=== PATIENT | female | born 1980 | race Caucasian/White ===

== ENCOUNTER 2017-08-18 18:31 | Emergency (ER) | payer OTHER ==
--- NOTE | 2017-08-18 19:14 | PDOC ---
Rapid Medical Evaluation Time Seen by Provider: 08/18/17 19:05 Medical Evaluation: 08/18/17 19:07 I have performed a brief in-person evaluation of this patient. The patient presents with a chief complaint of:LMP 07/03- + preg , 08/01 seen and [facility]. + bleeding x 6 days light. Follow up visit 08/15 Ultrasound saw retained products, blood work taken, additional "pill" given. + Bleeding. Today was called and told to come to ER for possible ectopic. No cramping today, no fevers, + bleeding. Pertinent physical exam findings: well, non toxic appearance , abd soft, NT no rebound I have ordered the following: CBC, TandS, BetaHcG, UA, IV, US transvag. The patient will proceed to the ED for further evaluation. 08/18/17 19:17 08/18/17 19:17
[2017-08-18 19:16] VITALS: BP 159/77; PULSE 98; TEMP 99.6; BMI 35.6
--- NOTE | 2017-08-18 19:46 | PDOC ---
History of Present Illness - General Chief Complaint: [facility] [place] Stated Complaint: VAGINAL BLEEDING (4WKS ) Time Seen by Provider: 08/18/17 19:05 History Source: Patient - History of Present Illness Initial Comments: 08/18/17 19:34 37F G2L1 last period July 03 [facility] (patient was then 4 weeks , confirmed by beta hcg 600 was at the time ). Came back for follow up today and was told she still had products on conception in the uterus. Patient was called 2 days later and told her beta hcg went up to either 1600 or 20344 (patient can't rememeber) and to go to the ER for possible Ectopic. 08/18/17 19:46 Patient is currently bleeding but pain free. Past History - Past Medical History Allergies/Adverse Reactions: Allergies Allergy/AdvReac Type Severity Reaction Status Date / Time No Known Allergies Allergy Verified 08/18/17 19:09 - Suicide/Smoking/Psychosocial Hx Smoking History: Never smoked Hx Alcohol Use: No Drug/Substance Use Hx: No Review of Systems - Review of Systems Able to Perform ROS?: Yes Is the patient limited Telugu proficient: No Constitutional: No: Symptoms Reported HEENTM: No: Symptoms Reported Respiratory: No: Symptoms reported Cardiac (ROS): No: Symptoms Reported ABD/GI: No: Symptoms Reported : No: Symptoms Reported Musculoskeletal: No: Symptoms Reported Integumentary: No: Symptoms Reported Neurological: No: Symptoms reported All Other Systems: Reviewed and Negative *Physical Exam - Vital Signs Last Vital Signs Temp Pulse Resp BP Pulse Ox 99.6 F 98 H 16 159/77 100 08/18/17 19:10 08/18/17 19:10 08/18/17 19:10 08/18/17 19:10 08/18/17 19:10 - Physical Exam General Appearance: Yes: Nourished, Appropriately Dressed. No: Apparent Distress HEENT: positive: EOMI, MARIELA, Normal ENT Inspection Neck: negative: Tender Respiratory/Chest: positive: Lungs Clear, Normal Breath Sounds. negative: Chest Tender, Respiratory Distress Cardiovascular: positive: Regular Rhythm, Regular Rate, S1, S2 Female Pelvic Exam: positive: vaginal bleeding Gastrointestinal/Abdominal: positive: Normal Bowel Sounds, Flat, Soft. negative : Tender ED Treatment Course - LABORATORY CBC & Chemistry Diagram: 08/18/17 19:20 08/18/17 19:20 Medical Decision Making - Medical Decision Making 08/18/17 19:47 37F evaluated for incomplete . *DC/Admit/Observation/Transfer Diagnosis at time of Disposition: Incomplete - Discharge Dispostion Disposition: AGAINST MEDICAL ADVICE Condition at time of disposition: Fair - Referrals Referrals: emergency department, urgently [Other] - Patient Instructions Printed Discharge Instructions: DI for Ectopic Additional Instructions: You're leaving against medical advice putting you at risk for rupture of possible ectopic which could lead to . Return to the Er urgently for evaluation and return immediately for any abnormal bleeding, pain, new, worsening or concerning symptoms. - Post Discharge Activity
[2017-08-18 19:51] LABS: BASO % 1.2 % (0-2.0); EOS % 1.3 % (0-4.5); HEMATOCRIT 36.8 % (32.4-45.2); HEMOGLOBIN 11.8 GM/dL (10.7-15.3); LYMPH % 27.2 % (8-40); MCH 26.9 pg (25.7-33.7); MCHC 32.1 g/dl (32.0-36.0); MEAN PLT VOLUME 8.8 fl (7.5-11.1); MONO % 9.8 % (3.8-10.2); NEUT % 60.5 % (42.8-82.8); PLATELET COUNT 417 K/MM3 (134-434); RBC 4.37 M/mm3 (3.60-5.2); RDW 13.7 % (11.6-15.6); WHITE BLOOD COUNT 8.1 K/mm3 (4.0-10.0)
--- NOTE | 2017-08-18 20:12 | PDOC ---
Attending Attestation - Resident Resident Name: Naun Gu - ED Attending Attestation I have performed the following: I have examined & evaluated the patient, The case was reviewed & discussed with the resident, I agree w/resident's findings & plan, Exceptions are as noted - Physicial Exam PE: 08/18/17 20:34 Patient is awake and alert, well-nourished, in no distress nc, atr cta rrr sft, nt, nd - Medical Decision Making 08/18/17 20:32 Patient is a 37-year-old female, 2 para 1, at 6 weeks gestation by [employer] who presents to the ER with scant vaginal bleeding after receiving 2 doses of methotrexate at [facility] for a planned . Patient reports that she underwent an ultrasound which showed retained products of conception and her beta hCG was noted to increase from baseline. Patient was suggested to come to the ER for evaluation of a possible ectopic . In the ER, patient is nontoxic appearing, without any abdominal pain with normal vital signs. Patient refused pelvic exam did not wish to wait for a transvaginal ultrasound U2 familial applications. Patient will be signing out AGAINST MEDICAL ADVICE but will be instructed to return immediately for reevaluation. Patient will be given ectopic precautions. <Kamar Vincent - Last Filed: 08/18/17 20:32> - HPI HPI: 08/18/17 20:55 The patient is a 41-year-old male, with no significant past medical history, who presents to the ED for an abscess on the right forearm that the patient noted 5 days ago. The patient has noted an increase in pain and size over the past few days. He denies any recent injury to the area. <Nela Jeffers - Last Filed: 08/18/17 20:56>
[2017-08-18 20:55] LABS: ALBUMIN 3.2 g/dl (3.4-5.0); ALK PHOS 179 U/L (45-117); ANION GAP 9 (8-16); BILIRUBIN,TOTAL 0.2 mg/dL (0.2-1.0); BLOOD UREA NITROGEN 15 mg/dL (7-18); CALCIUM 8.5 mg/dL (8.5-10.1); CHLORIDE 106 mmol/L (98-107); CO2 23 mmol/L (21-32); CREATININE 0.4 mg/dL (0.55-1.02); GLUCOSE,RANDOM 82 mg/dL (74-106); POTASSIUM 4.3 mmol/L (3.5-5.1); SGOT/AST 13 U/L (15-37); SGPT/ALT 18 U/L (12-78); SODIUM 138 mmol/L (136-145); TOT PROT 7.3 g/dl (6.4-8.2)
== END 2017-08-18 21:14 | disposition left against medical advice (07) ==
LOC: JER 18:31
DX: O03.39 Incomplete spontaneous abortion with other complications (principal); O03.1 Delayed or excessive hemorrhage following incomplete spontaneous abortion
CPT/HCPCS: 36415; 80053; 84702; 85025; 86850; 86900; 86901; 99281-25

== ENCOUNTER 2017-08-18 23:15 | Emergency (ER) | payer OTHER ==
--- NOTE | 2017-08-18 23:53 | PDOC ---
History of Present Illness <Kamar Vincent - Last Filed: 08/19/17 02:17> - General History Source: Patient Exam Limitations: No Limitations - History of Present Illness Initial Comments: 08/19/17 01:04 The patient is a 37-year-old female, , with no significant past medical history, who presents to the ED for retained products of conception today. The patient states that she went to [facility] 2 weeks ago for a voluntary by pill. At that time, the patient was told that she was 4 weeks and her beta HCG was 600. The patient had a follow-up appointment at the clinic today. Imaging revealed products of conception in her uterus and she was noted to have a beta HCG of 1600. She was advised to come into the ED for possible ectopic . She reports that her last period was on July 03. On exam, the patient reports that she is currently bleeding. The patient had to leave against medical advice for familial obligations and now returns after labs revealed a beta HCG of 1800. She denies any nausea, vomiting, or diarrhea. She denies any vaginal discharge. <Nela Jeffers - Last Filed: 08/19/17 02:24> - General Chief Complaint: Revisit, Lab Variance Stated Complaint: ER REVIST Time Seen by Provider: 08/18/17 23:52 Past History - Suicide/Smoking/Psychosocial Hx Smoking History: Never smoked Hx Alcohol Use: No Drug/Substance Use Hx: No <Kamar Vincent - Last Filed: 08/19/17 02:17> <Nela Jeffers - Last Filed: 08/19/17 02:24> - Past Medical History Allergies/Adverse Reactions: Allergies Allergy/AdvReac Type Severity Reaction Status Date / Time No Known Allergies Allergy Verified 08/18/17 23:55 Home Medications: Ambulatory Orders Cephalexin [Keflex] 500 mg PO BID #14 capsule 08/19/17 Review of Systems - Review of Systems Able to Perform ROS?: Yes Comments:: 08/19/17 01:05 CONSTITUTIONAL: No fever, no chills, no fatigue EYES: No visual changes ENT: No ear pain, no sore throat CARDIOVASCULAR: No chest pain, no palpitations RESPIRATORY: No cough, no SOB GI: No abdominal pain, no nausea, no vomiting, no constipation, no diarrhea GENITOURINARY: (+)vaginal bleeding. No dysuria, no frequency, no hematuria MUSKULOSKELETAL: No backpain, no joint pain, no myalgias SKIN: No rash NEURO: No headache <Nela Jeffers - Last Filed: 08/19/17 02:24> *Physical Exam - Vital Signs Last Vital Signs Temp Pulse Resp BP Pulse Ox 98.2 F 98 H 17 147/86 100 08/18/17 23:57 08/18/17 23:52 08/18/17 23:52 08/18/17 23:52 08/18/17 23:52 - Physical Exam Comments: 08/19/17 02:22 CONSTITUTIONAL: Well-appearing; well-nourished; in no apparent distress HEAD: Normocephalic; atraumatic EYES: PERRL; EOM intact ENMT: External appears normal; normal oropharynx NECK: Supple; non-tender; no cervical lymphadenopathy CARD: Normal S1, S2; no murmurs, rubs, or gallops RESP: Normal chest excursion with respiration; breath sounds clear and equal bilaterally; no wheezes, rhonchi, or rales ABD: Soft, non-distended; non-tender; no palpable organomegaly, no palpable hernias EXT: Normal ROM in all four extremities; non-tender to palpation; distal pulses intact SKIN: Warm, dry, no rash NEURO: No focal neurological deficiencies. PELVIC EXAM: No external lesions Small amount of coagulated blood Os is closed No cmt <Nela Jeffers - Last Filed: 08/19/17 02:24> Medical Decision Making - Medical Decision Making 08/19/17 02:10 patient is a who presented receiving mifeprostone-misoprostol for an elective at [facility]. Patient hadd out AMA due to familial obions. Patien that her beta hCG has increased. In the ER, patient isawake and alet, hemodynamically stable, amount of vag bleeding and a closed os. beta hCG is noted to be 18,000Transvaginal ultrasound shows an IUP with yolk sac but no pole. No evidence of ectopic is present. Urinalysis reveals 12 WBCs per high-power field consistent with asymptomatic bacteriuria. Patient has been advised to follow-up with [facility] for further care given that the is not desirable and patient wishes termination. Will discharge with Keflex. <Kamar Vincent - Last Filed: 08/19/17 02:17> *DC/Admit/Observation/Transfer - Attestations Physician Attestion: 08/19/17 02:10 The documentation was prepared by the scribe under my direct supervision. I have reviewed the documentation which correctly represents the findings, medical decision-making and critical action taken by me. <Kamar Vincent - Last Filed: 08/19/17 02:17> - Attestations Scribe Attestion: 08/19/17 01:08 Documentation prepared by Nela Jeffers, acting as medical office technologist for Kamar Vincent MD. <Nela Jeffers - Last Filed: 08/19/17 02:24> Diagnosis at time of Disposition: Incomplete Urinary tract infection Qualifiers: Urinary tract infection type: site unspecified Hematuria presence: with hematuria Qualified Code(s): N39.0 - Urinary tract infection, site not specified - Discharge Dispostion Condition at time of disposition: Fair - Prescriptions Prescriptions: Cephalexin [Keflex] 500 mg PO BID #14 capsule - Referrals Referrals: ON STAFF,NOT [Non Staff, Medical] - [facility] [Other] - Patient Instructions Printed Discharge Instructions: Threatened , DI for Urinary Tract Infection (UTI) Additional Instructions: [facility], return to the ED for severe abd pain, vaginal bleeding, fever - Post Discharge Activity
[2017-08-18 23:56] VITALS: BP 147/86; PULSE 98; BMI 33.8
[2017-08-19 00:12] VITALS: TEMP 98.2
[2017-08-19 01:47] LABS: URINE APPEARANCE SLCLOUDY; URINE BILIRUBIN NEGATIVE (NEGATIVE); URINE BLOOD 3+ (NEGATIVE); URINE COLOR YELLOW; URINE GLUCOSE (UA) NEGATIVE (NEGATIVE); URINE KETONE NEGATIVE (NEGATIVE); URINE NITRITE NEGATIVE (NEGATIVE); URINE PROTEIN NEGATIVE (NEGATIVE)
[2017-08-19 01:49] LABS: URINE LEUK ESTERASE 2+ (NEGATIVE)
[2017-08-19 01:51] LABS: CALCIUM OXALATE CRYSTALS MODERATE /hpf (NONE SEEN); EPI CELLS RARE /HPF (FEW); URINE MUCUS FEW
== END 2017-08-19 02:35 | disposition home or self-care (01) ==
LOC: SUPCPDRO 23:15 → JER 23:15
DX: O03.39 Incomplete spontaneous abortion with other complications (principal); O03.1 Delayed or excessive hemorrhage following incomplete spontaneous abortion
CPT/HCPCS: 76817-TC; 81003; 81015; 87086; 99283-25

== ENCOUNTER 2020-08-20 17:59 | Inpatient (IN) | payer OTHER ==
[2020-08-20] MEDS ORDERED: morphine CARPU-JECT 4 MG/1 ML DISP.SYRIN IVPUSH ONE (18:52)
[2020-08-20] MEDS ORDERED: ACETAMINOPHEN 325 MG TABLET (FP) PO ONE (18:52)
[2020-08-20] MEDS ORDERED: ACETAMINOPHEN 325 MG TABLET (FP) ONE (19:08)
[2020-08-20] MEDS ORDERED: morphine SULFATE 4 MG/ML VIAL ONE (19:09)
[2020-08-20] MEDS ORDERED: VANCOMYCIN HCL 1,500 MG in DEXTROSE 5%-WATER - 500 ML IVPB ONE (19:28)
[2020-08-20] MEDS ORDERED: CLINDAMYCIN 600MG PREMIX IVPB 600 MG/50 ML BAG IVPB ONE ×2 (19:47→19:53)
[2020-08-20 19:49] LABS: EOS % 0.8 % (0-4.5); HEMATOCRIT 30.6 % (32.4-45.2); HEMOGLOBIN 9.4 GM/dL (10.7-15.3); LYMPH % 22.8 % (8-40); MCHC 30.9 g/dl (32.0-36.0); MONO % 9.2 % (3.8-10.2); NEUT % 66.2 % (42.8-82.8); PLATELET COUNT 533 K/MM3 (134-434); RDW 17.6 % (11.6-15.6); WHITE BLOOD COUNT 9.7 K/mm3 (4.0-10.0)
[2020-08-20 20:05] LABS: PROTHROMBIN TIME (PATIENT) 12.3 SEC (9.7-13.0)
[2020-08-20 20:08] LABS: ACTIVATED PTT 25.3 SECONDS (25.2-36.5)
[2020-08-20] MEDS ORDERED: ACETAMINOPHEN 325 MG TABLET (FP) PO PRN (20:12)
[2020-08-20 20:14] LABS: POTASSIUM 3.8 mmol/L (3.5-5.1)
[2020-08-20 20:16] LABS: CALCIUM 8.1 mg/dL (8.5-10.1)
[2020-08-20 20:17] LABS: BLOOD UREA NITROGEN 14.9 mg/dL (7-18)
[2020-08-20 20:20] LABS: CREATININE 0.4 mg/dL (0.55-1.3)
[2020-08-20 20:22] LABS: BILIRUBIN,TOTAL 0.5 mg/dL (0.2-1); TOT PROT 7.1 g/dl (6.4-8.2)
[2020-08-20 21:43] LABS: ANISOCYTOSIS 2+; MACROCYTOSIS 1+; PLATELET ESTIMATE INCREASED
[2020-08-21 00:29] VITALS: BMI 38.4
[2020-08-21] MEDS: MORPHINE SULFATE 2 MG/ML VIAL IVPUSH PRN ×2 (00:42→06:34)
[2020-08-21] MEDS ORDERED: PT OWN MED DRAWER 7, Y5N ONE ×2 (08:42→17:30)
[2020-08-21 08:58] LABS: BASO % 0.9 % (0-2.0); EOS % 0.7 % (0-4.5); HEMATOCRIT 29.1 % (32.4-45.2); LYMPH % 21.3 % (8-40); MCH 21.1 pg (25.7-33.7); MEAN PLT VOLUME 9.2 fl (7.5-11.1); MONO % 8.3 % (3.8-10.2); NEUT % 68.8 % (42.8-82.8); PLATELET COUNT 481 K/MM3 (134-434); RBC 4.28 M/mm3 (3.60-5.2); RDW 17.8 % (11.6-15.6); WHITE BLOOD COUNT 7.9 K/mm3 (4.0-10.0)
[2020-08-21 09:22] LABS: ALBUMIN 2.8 g/dl (3.4-5.0); BLOOD UREA NITROGEN 9.3 mg/dL (7-18); CALCIUM 8.2 mg/dL (8.5-10.1)
[2020-08-21 09:23] LABS: MAGNESIUM 1.9 mg/dL (1.8-2.4)
[2020-08-21 09:25] LABS: CREATININE 0.3 mg/dL (0.55-1.3)
[2020-08-21 09:26] LABS: BILIRUBIN,TOTAL 0.3 mg/dL (0.2-1); TOT PROT 6.6 g/dl (6.4-8.2)
[2020-08-21] MEDS ORDERED: VANCOMYCIN 1 GRAM (PRE-DOCKED) 1,000 MG/250 ML BAG IVPB ONE (10:00)
[2020-08-21] MEDS: AMPICILLIN NA/SULBACTAM NA 3 GM in SODIUM CHLORIDE 100 ML IVPB SCH ×3 (10:19→20:15)
[2020-08-21] MEDS ORDERED: VANCOMYCIN/WATER BAGS 1,250 MG/250 ML BAG IVPB SCH (11:00)
[2020-08-21] MEDS ORDERED: ACETAMINOPHEN 1000 MG/100 ML VIAL (NON FORMULARY) IVPB ONE (11:43)
[2020-08-21] MEDS ORDERED: MIDAZOLAM HCL 2 MG/2 ML SINGLE DOSE VIAL ONE (13:23)
[2020-08-21] MEDS ORDERED: PROPOFOL 20 ML ONE (13:23)
[2020-08-21] MEDS ORDERED: ONDANSETRON 4 MG/2 ML VIAL IVPUSH PRN ×2 (14:06→14:29)
[2020-08-21] MEDS ORDERED: LACTATED RINGERS SOLUTION 1,000 ML IV SCH ×2 (14:15→14:29)
[2020-08-21] MEDS ORDERED: ACETAMINOPHEN 325 MG TABLET (FP) PO PRN (14:29)
[2020-08-21] MEDS ORDERED: oxyCODONE HCL 5 MG TABLET PO PRN (14:31)
[2020-08-21] MEDS ORDERED: KETOROLAC TROMETHAMINE 15 MG/ML VIAL IVPUSH PRN ×2 (14:33→14:44)
[2020-08-21] MEDS: oxyCODONE HCL 5 MG TABLET PO PRN (18:29)
[2020-08-22] MEDS: AMPICILLIN NA/SULBACTAM NA 3 GM in SODIUM CHLORIDE 100 ML IVPB SCH ×2 (02:29→09:05)
[2020-08-22] MEDS: oxyCODONE HCL 5 MG TABLET PO PRN ×2 (03:24→12:42)
[2020-08-22 05:09] VITALS: PULSE 90; TEMP 98.7
[2020-08-22 06:47] VITALS: BP 146/88
[2020-08-22] MEDS ORDERED: PT OWN MED DRAWER 7, Y5N ONE ×2 (08:32→12:28)
[2020-08-22] MEDS ORDERED: VANCOMYCIN/WATER BAGS 1,250 MG/250 ML BAG IVPB SCH (11:00)
[2020-08-22] MEDS ORDERED: AMOX TR/POT CLAV 875MG/125MG TABLETS (FP) PO SCH (17:30)
== END 2020-08-22 14:12 | disposition home or self-care (01) | DRG 385 ==
LOC: JER 17:59 → JERBED 19:48 → J8W 08-21 00:32
PROVIDERS: ADMIT Internal Medicine; ATTEND Family Medicine
PROC: 0W980ZX Drainage of Chest Wall, Open Approach, Diagnostic (ICD-10-PCS; principal; 2020-08-21 09:00)
DX: N61.1 Abscess of the breast and nipple (principal); L03.313 Cellulitis of chest wall; L02.213 Cutaneous abscess of chest wall
CPT/HCPCS: 36415; 71045-TC-FY; 76642-TC-RT; 80053; 83735; 84703; 85025; 85610; 85730; 86850; 86900; 86901; 87070; 87076; 87205; 93005; 93010; 94760; 99285-25; C9803; J0131; U0003

== ENCOUNTER 2023-11-27 08:32 | Day surgery (SDC) | payer OTHER ==
[2023-11-27] MEDS: FERRIC CARBOXYMALTOSE 750 MG in SODIUM CHLORIDE 250 ML IVPB ONE (09:25)
[2023-11-27 09:57] VITALS: RESP 20
[2023-11-27 14:27] VITALS: BP 139/66; PULSE 64; TEMP 98
== END 2023-11-27 10:40 | disposition home or self-care (01) ==
LOC: JONCNONCHE 08:32 → J7W 09:38 → JONCNONCHE 10:40
PROVIDERS: ATTEND Internal Medicine Hematology & Oncology
PROC: 3E033GC Introduction of Other Therapeutic Substance into Peripheral Vein, Percutaneous Approach (ICD-10-PCS; principal; 2023-11-27)
DX: D50.9 Iron deficiency anemia, unspecified (principal)
CPT/HCPCS: 96365; J1439

== ENCOUNTER 2023-12-04 08:00 | Day surgery (SDC) | payer OTHER ==
[2023-12-04] MEDS: FERRIC CARBOXYMALTOSE 750 MG in SODIUM CHLORIDE 250 ML IVPB ONE (08:07)
[2023-12-04 13:38] VITALS: BP 133/58; PULSE 67; TEMP 98.3
[2023-12-05 08:07] VITALS: RESP 20
== END 2023-12-04 09:00 | disposition home or self-care (01) ==
LOC: JONCNONCHE 08:00 → J7W 08:00 → JONCNONCHE 09:00
PROVIDERS: ATTEND Internal Medicine Hematology & Oncology
PROC: 3E033GC Introduction of Other Therapeutic Substance into Peripheral Vein, Percutaneous Approach (ICD-10-PCS; principal; 2023-12-04)
DX: D50.9 Iron deficiency anemia, unspecified (principal)
CPT/HCPCS: 96365; J1439

== ENCOUNTER 2024-12-23 11:13 | Day surgery (SDC) | payer OTHER ==
[2024-12-23] MEDS: FERRIC CARBOXYMALTOSE 750 MG in SODIUM CHLORIDE 250 ML IVPB ONE (11:38)
[2024-12-23 13:49] VITALS: RESP 18; TEMP 98.2
[2024-12-23 14:03] VITALS: BP 145/80; PULSE 69
== END 2024-12-23 13:10 | disposition home or self-care (01) ==
LOC: JONCCHEMO 11:13
PROVIDERS: ATTEND Internal Medicine Hematology & Oncology
PROC: 3E033GC Introduction of Other Therapeutic Substance into Peripheral Vein, Percutaneous Approach (ICD-10-PCS; principal; 2024-12-23)
DX: D50.9 Iron deficiency anemia, unspecified (principal)
CPT/HCPCS: 96365; J1439